=== PATIENT | male | born 1955 | race Caucasian/White ===

== ENCOUNTER → 2016-04-05 | Outpatient (CLI) | payer BC ==
[~2016-04-05] MED LIST: ANORO IH; ARICEPT10 MG PO; ASPIRIN 32325 MG/TAB PO; CELEXA 20MG20 MG/TAB PO; COZAAR 25MG25 MG/TAB PO; ERY-TAB250 MG PO; FLONASE NASAL S16 GM NS; LEVSIN 0.10.125 MG/T PO; MELATONIN5 M1 SL; NAMENDA 10MG TA10 MG PO; NEXIUM 40MG40 MG PO; NIRAVAM1 MG PO; NOVOLIN N100 U/ML SQ; OXY IR5 MG PO; PANCREAZE 437501 ECC PO; RESTORIL 1515 MG/CAP PO; SINGULAIR 110 MG/TAB PO; TOPROL XL 25MG25 MG PO; TOUJEO300 U/ML SQ; VENTOLIN0.09 MG IH; ZOFRAN ODT8 MG PO
== END ==
LOC: COL.LAB 17:03
DX: E11.65 Type 2 diabetes mellitus with hyperglycemia (principal)

== ENCOUNTER 2016-04-25 15:39 | Emergency (ER) | payer BC ==
[~2016-04-25] VITALS: Ht 188 cm; Wt 100.0 kg
[2016-04-25 15:41] VITALS: TEMP 97.6
[2016-04-25 16:16] LABS: BASO # 0.1 (0.0-0.2); BASO % 0.7 % (0.0-2.0); EOS # 0.2 (0.0-0.7); EOS % 2.2 % (0-4.0); GRAN # 5.2 (1.4-6.5); HEMOGLOBIN 15.8 g/dl (13.5-18.0); LYMPH # 1.3 (1.2-3.4); LYMPH % 17.7 % (20.0-51.0); MEAN CELL VOLUME 91 fl (80.0-100.0); MEAN CORPUSCULAR HEMOGLOBIN 30 pg (27.0-31.0); MEAN CORPUSCULAR HGB CONC 33 g/dl (33.0-37.0); MEAN PLATELET VOLUME 11.3 fl (7.4-10.4); MONO # 0.8 (0.1-0.6); MONO % 10.3 % (1.7-9.3); PLATELET COUNT 190 K/mm3 (130-400); RED BLOOD COUNT 5.25 M/mm3 (4.20-5.60); REDCELL DISTRIBUTION WIDTH-CV 13.3 % (11.5-14.5); WHITE BLOOD COUNT 7.6 K/mm3 (4.8-10.8)
[2016-04-25 16:27] LABS: ADJUSTED CALCIUM 9.7 mg/dL (8.4-10.2); ALBUMIN 4.2 gm/dL (3.5-5.0); BILIRUBIN,TOTAL 1.5 mg/dL (0.0-1.0); CALCIUM 9.9 mg/dL (8.4-10.2); CREATININE, serum 0.86 mg/dL (0.66-1.25); POTASSIUM 4.5 mmol/L (3.4-5.0)
[2016-04-25] MEDS ORDERED: TOUJEO300 U/ML SQ ×2 (16:46→17:23)
[2016-04-25] MEDS ORDERED: ASPIRIN 32325 MG/TAB PO (16:46)
[2016-04-25] MEDS ORDERED: NEXIUM 40MG40 MG PO (16:49)
[2016-04-25] MEDS ORDERED: PANCREAZE 437501 ECC PO (16:50)
[2016-04-25] MEDS ORDERED: NIRAVAM1 MG PO (16:50)
[2016-04-25] MEDS ORDERED: RESTORIL 1515 MG/CAP PO (16:51)
[2016-04-25] MEDS ORDERED: CELEXA 20MG20 MG/TAB PO (16:51)
[2016-04-25] MEDS ORDERED: VENTOLIN0.09 MG IH (16:52)
[2016-04-25] MEDS ORDERED: ERY-TAB250 MG PO (16:53)
[2016-04-25] MEDS ORDERED: ZOFRAN ODT8 MG PO (16:54)
[2016-04-25] MEDS ORDERED: ARICEPT10 MG PO (16:56)
[2016-04-25] MEDS ORDERED: LEVSIN 0.10.125 MG/T PO (16:56)
[2016-04-25] MEDS ORDERED: MELATONIN5 M1 SL (16:57)
[2016-04-25] MEDS ORDERED: SINGULAIR 110 MG/TAB PO (16:57)
[2016-04-25] MEDS ORDERED: FLONASE NASAL S16 GM NS (16:59)
[2016-04-25] MEDS ORDERED: ANORO IH (16:59)
[2016-04-25] MEDS ORDERED: NAMENDA 10MG TA10 MG PO (16:59)
[2016-04-25] MEDS ORDERED: COZAAR 25MG25 MG/TAB PO (17:00)
[2016-04-25] MEDS ORDERED: TOPROL XL 25MG25 MG PO (17:00)
[2016-04-25 17:04] LABS: ARTERIAL BLD GAS O2 SATURATION 93.5 % (92-100); ARTERIAL BLOOD GAS BASE EXCESS -1.4 (-2-2); ARTERIAL BLOOD GAS PO2 76.6 mmHg (80-100); ARTERIAL BLOOD GAS pH 7.44 (7.35-7.45); OXYHEMOGLOBIN 92.7 %
[2016-04-25 17:05] LABS: ATS? YES
[2016-04-25] MEDS ORDERED: NOVOLIN N100 U/ML SQ (17:24)
[2016-04-25 18:16] LABS: PH 6 (5-8); SQUAMOUS EPITHELIAL None Seen /hpf; URINE APPEARANCE Clear; URINE BACTERIA Rare /hpf; URINE BILIRUBIN Negative (NEGATIVE); URINE BLOOD Negative (NEGATIVE); URINE COLOR Straw; URINE GLUCOSE 3+ (NEGATIVE); URINE KETONE Negative (NEGATIVE); URINE RBC 0-2 /hpf; URINE UROBILINOGEN Negative (NEGATIVE); URINE WBC None Seen /hpf
[2016-04-25 18:58] VITALS: BP 114/75; PULSE 64
[2016-04-25] MEDS ORDERED: OXY IR5 MG PO (19:10)
== END 2016-04-25 19:30 | disposition home or self-care (01) ==
LOC: COL.ER 15:39
PROVIDERS: Family Medicine
DX: E11.65 Type 2 diabetes mellitus with hyperglycemia (principal); K85.90 Acute pancreatitis without necrosis or infection, unspecified; Z79.4 Long term (current) use of insulin; F03.90 Unspecified dementia, unspecified severity, without behavioral disturbance, psychotic disturbance, mood disturbance, and anxiety; Z85.07 Personal history of malignant neoplasm of pancreas
CPT/HCPCS: J1815; J7030; Q9967

== ENCOUNTER → 2016-06-05 | Outpatient (CLI) | payer BC ==
[2016-06-05 12:48] LABS: ADJUSTED CALCIUM 9.8 mg/dL (8.4-10.2); ALBUMIN 3.7 gm/dL (3.5-5.0); BILIRUBIN,TOTAL 1.1 mg/dL (0.0-1.0); CALCIUM 9.6 mg/dL (8.4-10.2); CREATININE, serum 0.87 mg/dL (0.66-1.25); POTASSIUM 4.5 mmol/L (3.4-5.0)
== END ==
LOC: COL.LAB 11:30
DX: E11.65 Type 2 diabetes mellitus with hyperglycemia (principal)

== ENCOUNTER → 2016-07-17 | Outpatient (CLI) | payer BC ==
[2016-07-17 10:38] LABS: ADJUSTED CALCIUM 9.4 mg/dL (8.4-10.2); BILIRUBIN,TOTAL 1.3 mg/dL (0.0-1.0); CALCIUM 9.4 mg/dL (8.4-10.2); CREATININE, serum 0.84 mg/dL (0.66-1.25); POTASSIUM 4.3 mmol/L (3.4-5.0); TOTAL PROTEIN 7.7 gm/dL (6.4-8.2)
[2016-07-17 11:02] LABS: BASO # 0.1 (0.0-0.2); BASO % 1.5 % (0.0-2.0); EOS # 0.3 (0.0-0.7); EOS % 5.4 % (0-4.0); GRAN # 2.4 (1.4-6.5); GRAN % 48.9 % (42.2-75.2); HEMATOCRIT 42.6 % (42.0-52.0); HEMOGLOBIN 14.5 g/dl (13.5-18.0); LYMPH # 1.5 (1.2-3.4); LYMPH % 30.3 % (20.0-51.0); MEAN CELL VOLUME 87 fl (80.0-100.0); MEAN CORPUSCULAR HEMOGLOBIN 30 pg (27.0-31.0); MEAN CORPUSCULAR HGB CONC 34 g/dl (33.0-37.0); MEAN PLATELET VOLUME 10.8 fl (7.4-10.4); MONO # 0.7 (0.1-0.6); MONO % 13.5 % (1.7-9.3); PLATELET COUNT 178 K/mm3 (130-400); REDCELL DISTRIBUTION WIDTH-CV 14.4 % (11.5-14.5); WHITE BLOOD COUNT 4.8 K/mm3 (4.8-10.8)
[2016-07-17 11:03] LABS: PROTHROMBIN TIME 10.9 SECONDS (9.7-12.8)
== END ==
LOC: COL.LAB 09:51
PROVIDERS: Internal Medicine Gastroenterology
DX: K70.30 Alcoholic cirrhosis of liver without ascites (principal)

== ENCOUNTER → 2016-07-24 | Outpatient (CLI) | payer BC | LOC: COL.RAD 10:39 | DX: K70.30 Alcoholic cirrhosis of liver without ascites (principal) ==

== ENCOUNTER → 2016-08-04 | Outpatient (CLI) | payer BC | LOC: COL.RAD 08-03 10:30 | DX: C25.9 Malignant neoplasm of pancreas, unspecified (principal); Z98.890 Other specified postprocedural states | CPT/HCPCS: Q9967 ==

== ENCOUNTER → 2016-09-01 | Outpatient (CLI) | payer BC ==
[2016-09-01 13:45] LABS: BASO % 0.7 % (0.0-2.0); EOS # 0.2 (0.0-0.7); EOS % 3.4 % (0-4.0); GRAN # 3.5 (1.4-6.5); HEMATOCRIT 47.4 % (42.0-52.0); HEMOGLOBIN 16.1 g/dl (13.5-18.0); LYMPH # 1.3 (1.2-3.4); LYMPH % 23.2 % (20.0-51.0); MEAN CELL VOLUME 86 fl (80.0-100.0); MEAN CORPUSCULAR HEMOGLOBIN 29 pg (27.0-31.0); MEAN CORPUSCULAR HGB CONC 34 g/dl (33.0-37.0); MEAN PLATELET VOLUME 11.1 fl (7.4-10.4); MONO # 0.5 (0.1-0.6); MONO % 8.5 % (1.7-9.3); PLATELET COUNT 185 K/mm3 (130-400); RED BLOOD COUNT 5.51 M/mm3 (4.20-5.60); REDCELL DISTRIBUTION WIDTH-CV 13.8 % (11.5-14.5); WHITE BLOOD COUNT 5.5 K/mm3 (4.8-10.8)
[2016-09-01 14:00] LABS: ADJUSTED CALCIUM 9.9 mg/dL (8.4-10.2); ALBUMIN 4.1 gm/dL (3.5-5.0); BILIRUBIN,TOTAL 1.2 mg/dL (0.0-1.0); CREATININE, serum 0.74 mg/dL (0.66-1.25); POTASSIUM 4.7 mmol/L (3.4-5.0); TOTAL PROTEIN 7.7 gm/dL (6.4-8.2)
== END ==
LOC: COL.LAB 12:37
DX: C25.0 Malignant neoplasm of head of pancreas (principal); D69.6 Thrombocytopenia, unspecified

== ENCOUNTER → 2016-09-18 | Outpatient (CLI) | payer BC ==
[2016-09-18 12:04] LABS: BILIRUBIN,DIRECT 0.5 mg/dL (0.0-0.4); BILIRUBIN,TOTAL 0.9 mg/dL (0.0-1.0); TOTAL PROTEIN 7.6 gm/dL (6.4-8.2)
== END ==
LOC: COL.LAB 11:28
PROVIDERS: Internal Medicine Gastroenterology
DX: K70.30 Alcoholic cirrhosis of liver without ascites (principal)

== ENCOUNTER → 2016-10-02 | Outpatient (CLI) | payer BC ==
[2016-10-02 11:13] LABS: BASO # 0.1 (0.0-0.2); EOS # 0.2 (0.0-0.7); EOS % 2.6 % (0-4.0); GRAN # 3.5 (1.4-6.5); GRAN % 56.4 % (42.2-75.2); HEMATOCRIT 48.9 % (42.0-52.0); HEMOGLOBIN 16.3 g/dl (13.5-18.0); LYMPH # 1.9 (1.2-3.4); LYMPH % 30.4 % (20.0-51.0); MEAN CELL VOLUME 87 fl (80.0-100.0); MEAN CORPUSCULAR HEMOGLOBIN 29 pg (27.0-31.0); MEAN CORPUSCULAR HGB CONC 33 g/dl (33.0-37.0); MEAN PLATELET VOLUME 10.7 fl (7.4-10.4); MONO # 0.6 (0.1-0.6); MONO % 9.4 % (1.7-9.3); PLATELET COUNT 207 K/mm3 (130-400); RED BLOOD COUNT 5.61 M/mm3 (4.20-5.60); REDCELL DISTRIBUTION WIDTH-CV 13.7 % (11.5-14.5); WHITE BLOOD COUNT 6.2 K/mm3 (4.8-10.8)
[2016-10-02 11:18] LABS: PROTHROMBIN TIME 11.2 SECONDS (9.7-12.8)
[2016-10-02 11:24] LABS: ADJUSTED CALCIUM 9.4 mg/dL (8.4-10.2); ALBUMIN 4.3 gm/dL (3.5-5.0); BILIRUBIN,TOTAL 1.3 mg/dL (0.0-1.0); CALCIUM 9.6 mg/dL (8.4-10.2); CREATININE, serum 0.88 mg/dL (0.66-1.25); POTASSIUM 4.4 mmol/L (3.4-5.0)
== END ==
LOC: COL.RAD 08:15
PROVIDERS: Internal Medicine Gastroenterology
DX: Z12.5 Encounter for screening for malignant neoplasm of prostate (principal); C25.9 Malignant neoplasm of pancreas, unspecified; K74.60 Unspecified cirrhosis of liver; I08.2 Rheumatic disorders of both aortic and tricuspid valves; I51.89 Other ill-defined heart diseases; R07.9 Chest pain, unspecified; E11.65 Type 2 diabetes mellitus with hyperglycemia; J98.4 Other disorders of lung

== ENCOUNTER → 2016-10-11 | Outpatient (CLI) | payer BC ==
[2016-10-11 13:33] LABS: PSA-TOTAL 0.68 ng/mL (0-4)
== END ==
LOC: COL.LAB 12:33
PROVIDERS: Family Medicine
DX: Z12.5 Encounter for screening for malignant neoplasm of prostate (principal); E11.65 Type 2 diabetes mellitus with hyperglycemia
CPT/HCPCS: G0103

== ENCOUNTER → 2017-03-08 | Outpatient (CLI) | payer MEDICARE, BC | LOC: COL.RAD 10:30 | DX: K74.69 Other cirrhosis of liver (principal) ==

== ENCOUNTER → 2017-04-16 | Outpatient (CLI) | payer MEDICARE, BC ==
[2017-04-16 11:37] LABS: BASO % 0.8 % (0.0-2.0); EOS # 0.1 (0.0-0.7); EOS % 2.7 % (0-4.0); GRAN # 2.6 (1.4-6.5); GRAN % 53.9 % (42.2-75.2); HEMATOCRIT 45.3 % (42.0-52.0); HEMOGLOBIN 15.4 g/dl (13.5-18.0); LYMPH # 1.5 (1.2-3.4); LYMPH % 30.8 % (20.0-51.0); MEAN CELL VOLUME 91 fl (80.0-100.0); MEAN CORPUSCULAR HEMOGLOBIN 31 pg (27.0-31.0); MEAN CORPUSCULAR HGB CONC 34 g/dl (33.0-37.0); MEAN PLATELET VOLUME 10.9 fl (7.4-10.4); MONO # 0.6 (0.1-0.6); MONO % 11.6 % (1.7-9.3); PLATELET COUNT 154 K/mm3 (130-400); RED BLOOD COUNT 4.98 M/mm3 (4.20-5.60); REDCELL DISTRIBUTION WIDTH-CV 13.9 % (11.5-14.5)
[2017-04-16 11:46] LABS: BILIRUBIN,TOTAL 1.1 mg/dL (0.0-1.0); CALCIUM 9.3 mg/dL (8.4-10.2); CREATININE, serum 0.83 mg/dL (0.66-1.25); POTASSIUM 4.5 mmol/L (3.4-5.0); TOTAL PROTEIN 7.3 gm/dL (6.4-8.2)
== END ==
LOC: COL.LAB 10:08
PROVIDERS: Internal Medicine Gastroenterology
DX: K74.60 Unspecified cirrhosis of liver (principal)

== ENCOUNTER → 2017-04-20 | Outpatient (CLI) | payer MEDICARE, BC ==
[2017-04-20 10:02] LABS: CALCIUM 10.1 mg/dL (8.4-10.2); CHOLESTEROL RISK RATIO 3.5; CREATININE, serum 0.79 mg/dL (0.66-1.25); POTASSIUM 4.5 mmol/L (3.4-5.0)
[2017-04-20 23:26] LABS: CREATININE OTHER SOURCE 85 mg/dL (()); URINE MICROALBUMIN <0.5 mg/dL (0.0-1.7)
== END ==
LOC: COL.LAB 09:13
PROVIDERS: Internal Medicine Endocrinology, Diabetes & Metabolism
DX: E08.9 Diabetes mellitus due to underlying condition without complications (principal); E89.1 Postprocedural hypoinsulinemia; Z90.410 Acquired total absence of pancreas

== ENCOUNTER → 2017-07-16 | Outpatient (CLI) | payer MEDICARE, BC ==
[2017-07-16 09:23] LABS: ALBUMIN 3.8 gm/dL (3.5-5.0); BILIRUBIN,TOTAL 0.8 mg/dL (0.0-1.0); CALCIUM 9.2 mg/dL (8.4-10.2); CREATININE, serum 0.8 mg/dL (0.66-1.25); TOTAL PROTEIN 7.7 gm/dL (6.4-8.2)
[2017-07-16 22:58] LABS: CREATININE OTHER SOURCE 94 mg/dL (()); URINE MICROALBUMIN <0.5 mg/dL (0.0-1.7)
== END ==
LOC: COL.LAB 08:28
DX: E89.1 Postprocedural hypoinsulinemia (principal); E11.65 Type 2 diabetes mellitus with hyperglycemia; Z90.410 Acquired total absence of pancreas

== ENCOUNTER → 2017-08-24 | Outpatient (CLI) | payer MEDICARE, BC ==
[2017-08-24 10:35] LABS: BASO % 0.7 % (0.0-2.0); EOS # 0.2 (0.0-0.7); EOS % 3.1 % (0-4.0); GRAN # 3.1 (1.4-6.5); GRAN % 56.1 % (42.2-75.2); HEMATOCRIT 44.2 % (42.0-52.0); HEMOGLOBIN 15.4 g/dl (13.5-18.0); LYMPH # 1.6 (1.2-3.4); LYMPH % 29.3 % (20.0-51.0); MEAN CELL VOLUME 92 fl (80.0-100.0); MEAN CORPUSCULAR HEMOGLOBIN 32 pg (27.0-31.0); MEAN CORPUSCULAR HGB CONC 35 g/dl (33.0-37.0); MEAN PLATELET VOLUME 10.6 fl (7.4-10.4); MONO # 0.6 (0.1-0.6); MONO % 10.4 % (1.7-9.3); PLATELET COUNT 148 K/mm3 (130-400); RED BLOOD COUNT 4.81 M/mm3 (4.20-5.60); REDCELL DISTRIBUTION WIDTH-CV 12.9 % (11.5-14.5)
[2017-08-24 10:41] LABS: PROTHROMBIN TIME 11.2 SECONDS (9.7-12.8)
[2017-08-24 10:54] LABS: ALBUMIN 3.6 gm/dL (3.5-5.0); BILIRUBIN,TOTAL 0.7 mg/dL (0.0-1.0); CALCIUM 9.5 mg/dL (8.4-10.2); CREATININE, serum 0.78 mg/dL (0.66-1.25); TOTAL PROTEIN 7.1 gm/dL (6.4-8.2)
== END ==
LOC: COL.LAB 09:31 → COL.RAD 10:30
PROVIDERS: Internal Medicine Gastroenterology
DX: K74.60 Unspecified cirrhosis of liver (principal); K75.81 Nonalcoholic steatohepatitis (NASH); Z90.49 Acquired absence of other specified parts of digestive tract

== ENCOUNTER → 2017-11-05 | Outpatient (CLI) | payer MEDICARE, BC ==
[2017-11-05 10:08] LABS: ALBUMIN 3.7 gm/dL (3.5-5.0); BILIRUBIN,TOTAL 0.7 mg/dL (0.0-1.0); CALCIUM 8.9 mg/dL (8.4-10.2); CHOLESTEROL RISK RATIO 3.5; CREATININE, serum 0.77 mg/dL (0.66-1.25); POTASSIUM 4.3 mmol/L (3.4-5.0)
== END ==
LOC: COL.LAB 09:23
PROVIDERS: Internal Medicine Endocrinology, Diabetes & Metabolism
DX: E13.9 Other specified diabetes mellitus without complications (principal); E89.1 Postprocedural hypoinsulinemia; Z90.410 Acquired total absence of pancreas; G63 Polyneuropathy in diseases classified elsewhere

== ENCOUNTER → 2017-11-22 | Outpatient (CLI) | payer MEDICARE, BC | LOC: COL.LAB 07:38 | DX: R53.82 Chronic fatigue, unspecified (principal) | CPT/HCPCS: G0103 ==

== ENCOUNTER → 2017-12-24 | Outpatient (CLI) | payer MEDICARE, BC ==
[2017-12-26 14:21] LABS: SEX HORMONE BINDING GLOBULIN 38 nmol/L (10-57)
== END ==
LOC: COL.LAB 07:38
PROVIDERS: Physician Assistant
DX: R53.82 Chronic fatigue, unspecified (principal)

== ENCOUNTER 2018-01-28 20:30 | Observation (INO) | payer MEDICARE, BC ==
[~2018-01-28] VITALS: Ht 188 cm; Wt 107.9 kg
[2018-01-28 20:53] LABS: BASO % 0.6 % (0.0-2.0); EOS # 0.1 (0.0-0.7); EOS % 2.3 % (0-4.0); GRAN # 3.6 (1.4-6.5); GRAN % 58.4 % (42.2-75.2); HEMATOCRIT 47.2 % (42.0-52.0); HEMOGLOBIN 16.3 g/dl (13.5-18.0); LYMPH # 1.7 (1.2-3.4); LYMPH % 27.6 % (20.0-51.0); MEAN CELL VOLUME 91 fl (80.0-100.0); MEAN CORPUSCULAR HEMOGLOBIN 31 pg (27.0-31.0); MEAN CORPUSCULAR HGB CONC 35 g/dl (33.0-37.0); MEAN PLATELET VOLUME 10.6 fl (7.4-10.4); MONO # 0.7 (0.1-0.6); MONO % 10.8 % (1.7-9.3); PLATELET COUNT 171 K/mm3 (130-400); REDCELL DISTRIBUTION WIDTH-CV 13.1 % (11.5-14.5)
[2018-01-28 21:02] LABS: ALANINE AMINOTRANSFERASE 56 U/L (21-72); ALBUMIN 4.3 gm/dL (3.5-5.0); ALKALINE PHOSPHATASE 166 U/L (50-136); ANION GAP 6 mmol/L (7-16); AST,SGOT 37 U/L (15-37); BILIRUBIN,TOTAL 0.9 mg/dL (0.0-1.0); BLOOD UREA NITROGEN 16 mg/dL (9-20); CALCIUM 9.4 mg/dL (8.4-10.2); CARBON DIOXIDE 27 mmol/L (22-30); CHLORIDE 105 mmol/L (98-107); CREATININE, serum 0.89 mg/dL (0.66-1.25); GLUCOSE 195 mg/dL (74-106); POTASSIUM 4.4 mmol/L (3.4-5.0); PROTHROMBIN TIME 11.2 SECONDS (9.7-12.8); SODIUM 139 mmol/L (137-145); TOTAL PROTEIN 7.9 gm/dL (6.4-8.2)
[2018-01-28 21:13] LABS: TROPONIN-I < 0.012 ng/mL (0.000-0.034)
[2018-01-28 21:28] LABS: D-DIMER < 200.00 ng/mLDDu (200-230)
[2018-01-28] MEDS ORDERED: EXELON13.3TDM (23:26)
[2018-01-28] MEDS ORDERED: CIALIS5 MG PO (23:30)
[2018-01-29] VITALS (7 sets, daily range): BP systolic 120–154; BP diastolic 66–82; PULSE 64–87; TEMP 97.4–98.3
[2018-01-29] MEDS ORDERED: NOVOLOG 100U100 U/M1 SQ (02:09)
[2018-01-29 07:53] LABS: BASO % 0.7 % (0.0-2.0); EOS # 0.1 (0.0-0.7); EOS % 2.1 % (0-4.0); GRAN # 3.6 (1.4-6.5); GRAN % 59.6 % (42.2-75.2); HEMATOCRIT 45.2 % (42.0-52.0); HEMOGLOBIN 15.7 g/dl (13.5-18.0); LYMPH # 1.5 (1.2-3.4); LYMPH % 25.1 % (20.0-51.0); MEAN CELL VOLUME 90 fl (80.0-100.0); MEAN CORPUSCULAR HEMOGLOBIN 31 pg (27.0-31.0); MEAN CORPUSCULAR HGB CONC 35 g/dl (33.0-37.0); MEAN PLATELET VOLUME 10.5 fl (7.4-10.4); MONO # 0.7 (0.1-0.6); MONO % 12.2 % (1.7-9.3); PLATELET COUNT 153 K/mm3 (130-400); RED BLOOD COUNT 5.02 M/mm3 (4.20-5.60); REDCELL DISTRIBUTION WIDTH-CV 13.3 % (11.5-14.5)
[2018-01-29 08:06] LABS: CALCIUM 9.2 mg/dL (8.4-10.2); CHOLESTEROL RISK RATIO 4.4; CREATININE, serum 0.71 mg/dL (0.66-1.25)
[2018-01-29 23:11] LABS: FOLATE (FOLIC ACID) 14.7 ng/mL (7.0-31.4)
[2018-01-30 00:29] LABS: RPR (VDRL) Negative (Negative)
[2018-01-30 04:03] VITALS: BP 123/67; PULSE 74; TEMP 98.4
[2018-01-30 07:41] VITALS: BP 119/74; PULSE 73; TEMP 98
[2018-01-30 12:06] VITALS: BP 125/61; PULSE 80; TEMP 98.2
[2018-01-30] MEDS ORDERED: PLAVIX 75MG TAB75 MG PO (13:46)
[2018-01-30] MEDS ORDERED: ASPIRIN E.C. 8181 MG PO (13:47)
== END 2018-01-30 15:20 | disposition home or self-care (01) ==
LOC: COL.ER 20:30 → MEDICAL 23:09
PROVIDERS: Emergency Medicine; Nurse Practitioner; Psychiatry & Neurology Neurology
DX: I48.91 Unspecified atrial fibrillation (principal); I10 Essential (primary) hypertension; E11.9 Type 2 diabetes mellitus without complications; K21.9 Gastro-esophageal reflux disease without esophagitis; J44.9 Chronic obstructive pulmonary disease, unspecified; F03.90 Unspecified dementia, unspecified severity, without behavioral disturbance, psychotic disturbance, mood disturbance, and anxiety; I71.4 Abdominal aortic aneurysm, without rupture; K74.60 Unspecified cirrhosis of liver; F01.50 Vascular dementia, unspecified severity, without behavioral disturbance, psychotic disturbance, mood disturbance, and anxiety; E03.9 Hypothyroidism, unspecified; Z90.49 Acquired absence of other specified parts of digestive tract; Z79.82 Long term (current) use of aspirin; Z79.4 Long term (current) use of insulin; Z85.07 Personal history of malignant neoplasm of pancreas; Z86.73 Personal history of transient ischemic attack (TIA), and cerebral infarction without residual deficits; Z85.51 Personal history of malignant neoplasm of bladder; Z82.3 Family history of stroke; Z83.3 Family history of diabetes mellitus
CPT/HCPCS: 99239; G0378; G8978-GP; G8979-GP; G8987-GO; G8988-GO; G9168-GN; G9169-GN; G9170-GN; J1650; J1815

== ENCOUNTER → 2018-02-15 | Outpatient (CLI) | payer MEDICARE, BC ==
[~2018-02-15] MED LIST changes: +ASPIRIN E.C. 8181 MG PO; +CIALIS5 MG PO; +EXELON13.3TDM; +NOVOLOG 100U100 U/M1 SQ; +PLAVIX 75MG TAB75 MG PO
[2018-02-15 10:35] LABS: ALBUMIN 3.8 gm/dL (3.5-5.0); BILIRUBIN,TOTAL 0.7 mg/dL (0.0-1.0); CALCIUM 9.4 mg/dL (8.4-10.2); CREATININE, serum 0.72 mg/dL (0.66-1.25); POTASSIUM 4.4 mmol/L (3.4-5.0); TOTAL PROTEIN 7.2 gm/dL (6.4-8.2)
== END ==
LOC: COL.LAB 09:23
PROVIDERS: Physician Assistant
DX: E13.9 Other specified diabetes mellitus without complications (principal); E89.1 Postprocedural hypoinsulinemia; Z90.410 Acquired total absence of pancreas

== ENCOUNTER 2018-03-06 14:00 | Outpatient (RCR) | payer MEDICARE, BC | END 2018-05-13 | disposition still patient (30) | LOC: WSST | DX: R48.9 Unspecified symbolic dysfunctions (principal); R41.3 Other amnesia; F01.50 Vascular dementia, unspecified severity, without behavioral disturbance, psychotic disturbance, mood disturbance, and anxiety; E03.9 Hypothyroidism, unspecified; I71.2 Thoracic aortic aneurysm, without rupture | CPT/HCPCS: G9168-GN; G9169-GN ==

== ENCOUNTER → 2018-03-15 | Outpatient (CLI) | payer MEDICARE, OTHER | LOC: COL.RAD 03-08 09:45 | DX: K75.81 Nonalcoholic steatohepatitis (NASH) (principal); K74.60 Unspecified cirrhosis of liver; Z98.890 Other specified postprocedural states ==

== ENCOUNTER 2018-07-13 19:32 | Emergency (ER) | payer MEDICARE, OTHER ==
[~2018-07-13] VITALS: Ht 188 cm; Wt 113.6 kg
[2018-07-13 19:38] VITALS: TEMP 98.9
[2018-07-13] MEDS ORDERED: MIRALAX PA17 GM/Dose PO (19:57)
[2018-07-13] MEDS ORDERED: PLAVIX 75MG TAB75 MG PO (20:02)
[2018-07-13 20:51] LABS: BASO % 0.3 % (0.0-2.0); EOS % 0.2 % (0-4.0); GRAN # 7.3 (1.4-6.5); GRAN % 84.9 % (42.2-75.2); HEMOGLOBIN 14.5 g/dl (13.5-18.0); LYMPH # 0.4 (1.2-3.4); LYMPH % 4.4 % (20.0-51.0); MEAN CELL VOLUME 91 fl (80.0-100.0); MEAN CORPUSCULAR HEMOGLOBIN 31 pg (27.0-31.0); MEAN CORPUSCULAR HGB CONC 35 g/dl (33.0-37.0); MEAN PLATELET VOLUME 10.4 fl (7.4-10.4); MONO # 0.9 (0.1-0.6); MONO % 9.9 % (1.7-9.3); PLATELET COUNT 121 K/mm3 (130-400); RED BLOOD COUNT 4.62 M/mm3 (4.20-5.60); REDCELL DISTRIBUTION WIDTH-CV 13.2 % (11.5-14.5)
[2018-07-13 21:04] LABS: ALANINE AMINOTRANSFERASE 53 U/L (21-72); ALBUMIN 3.7 gm/dL (3.5-5.0); ALKALINE PHOSPHATASE 141 U/L (50-136); ANION GAP 9 mmol/L (7-16); AST,SGOT 53 U/L (15-37); BLOOD UREA NITROGEN 18 mg/dL (9-20); C-REACTIVE PROTEIN 1.5 mg/dL (0.0-0.9); CARBON DIOXIDE 24 mmol/L (22-30); CHLORIDE 107 mmol/L (98-107); CREATININE, serum 0.88 (0.66-1.25); GLUCOSE 103 mg/dL (74-106); LIPASE 74 U/L (23-300); SODIUM 140 mmol/L (137-145)
[2018-07-13 21:13] LABS: TROPONIN-I < 0.012 ng/mL (0.000-0.035)
[2018-07-13 21:53] LABS: COLLECTION METHOD CLEAN CATCH
[2018-07-13 22:03] LABS: PH 5 (5-8); SQUAMOUS EPITHELIAL None Seen /hpf; URINE APPEARANCE Clear; URINE BACTERIA None Seen /hpf; URINE BILIRUBIN Negative (NEGATIVE); URINE BLOOD Negative (NEGATIVE); URINE COLOR Yellow; URINE GLUCOSE Negative (NEGATIVE); URINE KETONE Negative (NEGATIVE); URINE LEUKOCYTE ESTERASE Negative (NEGATIVE); URINE NITRATE Negative (NEGATIVE); URINE PROTEIN(semi-quant) Negative (NEGATIVE); URINE RBC 0-2 /hpf; URINE UROBILINOGEN Negative (NEGATIVE)
[2018-07-13 23:21] VITALS: BP 137/79; PULSE 89
== END 2018-07-13 23:21 | disposition home or self-care (01) ==
LOC: COL.ER 19:32
PROVIDERS: Emergency Medicine
DX: R55 Syncope and collapse (principal); G89.29 Other chronic pain; R10.30 Lower abdominal pain, unspecified; E11.9 Type 2 diabetes mellitus without complications; I48.91 Unspecified atrial fibrillation; K21.9 Gastro-esophageal reflux disease without esophagitis; F03.90 Unspecified dementia, unspecified severity, without behavioral disturbance, psychotic disturbance, mood disturbance, and anxiety; Z86.73 Personal history of transient ischemic attack (TIA), and cerebral infarction without residual deficits; Z79.51 Long term (current) use of inhaled steroids; Z79.4 Long term (current) use of insulin
CPT/HCPCS: J3010; J7030

== ENCOUNTER → 2018-08-22 | Outpatient (CLI) | payer MEDICARE, OTHER ==
[~2018-08-22] MED LIST changes: +MIRALAX PA17 GM/Dose PO
[2018-08-22 09:03] LABS: CALCIUM 9.4 mg/dL (8.4-10.2); CREATININE, serum 0.89 (0.66-1.25); POTASSIUM 4.1 mmol/L (3.4-5.0); TOTAL PROTEIN 7.8 gm/dL (6.4-8.2)
[2018-08-22 16:08] LABS: CREATININE OTHER SOURCE 83 mg/dL (()); URINE MICROALBUMIN <0.5 mg/dL (0.0-1.7)
== END ==
LOC: COL.LAB 07:54
PROVIDERS: Physician Assistant
DX: E89.1 Postprocedural hypoinsulinemia (principal)

== ENCOUNTER → 2019-02-18 | Outpatient (CLI) | payer MEDICARE, OTHER | LOC: COL.RAD 08:47 | DX: K75.81 Nonalcoholic steatohepatitis (NASH) (principal); K74.60 Unspecified cirrhosis of liver ==

== ENCOUNTER → 2019-03-17 | Outpatient (CLI) | payer MEDICARE, OTHER ==
[2019-03-17 12:10] LABS: CHOLESTEROL RISK RATIO 3.3
== END ==
LOC: COL.LAB 10:43
PROVIDERS: Physician Assistant
DX: I10 Essential (primary) hypertension (principal); E89.1 Postprocedural hypoinsulinemia

== ENCOUNTER → 2019-09-29 | Outpatient (CLI) | payer MEDICARE, OTHER ==
[2019-09-29 09:13] LABS: URINE PROTEIN:CREAT RATIO 0.13 (0.00-0.14)
== END ==
LOC: COL.LAB 08:11
DX: E89.1 Postprocedural hypoinsulinemia (principal)

== ENCOUNTER → 2019-12-17 | Outpatient (CLI) | payer MEDICARE, OTHER ==
[~2019-12-17] MED LIST changes: +AMOXICILLIN 8751 TAB PO; +KLONOPIN 1MG1 MG PO; +LYRICA 25MG CAP25 MG PO; +MELATONIN5 M1 PO; -MELATONIN5 M1 SL; +TAMBOCOR50 MG PO
[2019-12-17 10:44] LABS: ALBUMIN 4.3 gm/dL (3.5-5.0); CALCIUM 9.5 mg/dL (8.4-10.2); CREATININE, serum 0.8 (0.66-1.25); POTASSIUM 4.4 mmol/L (3.4-5.0); TOTAL PROTEIN 8.1 gm/dL (6.4-8.2)
== END ==
LOC: COL.LAB 09:29
PROVIDERS: Nurse Practitioner Family
DX: E89.1 Postprocedural hypoinsulinemia (principal); I10 Essential (primary) hypertension

== ENCOUNTER → 2020-01-12 | Outpatient (CLI) | payer MEDICARE, OTHER ==
[2020-01-12 09:01] LABS: BASO % 0.6 % (0.0-2.0); EOS # 0.1 (0.0-0.7); EOS % 2.3 % (0-4.0); GRAN # 2.9 (1.4-6.5); GRAN % 60.4 % (42.2-75.2); HEMATOCRIT 46.3 % (42.0-52.0); LYMPH # 1.1 (1.2-3.4); LYMPH % 23.4 % (20.0-51.0); MEAN CELL VOLUME 91 fl (80.0-100.0); MEAN CORPUSCULAR HEMOGLOBIN 32 pg (27.0-31.0); MEAN CORPUSCULAR HGB CONC 35 g/dl (33.0-37.0); MEAN PLATELET VOLUME 10.6 fl (7.4-10.4); MONO # 0.6 (0.1-0.6); MONO % 13.1 % (1.7-9.3); PLATELET COUNT 139 K/mm3 (130-400); RED BLOOD COUNT 5.07 M/mm3 (4.20-5.60); REDCELL DISTRIBUTION WIDTH-CV 12.5 % (11.5-14.5)
[2020-01-12 09:11] LABS: PROTHROMBIN TIME 11.4 SECONDS (9.7-12.8)
[2020-01-12 09:14] LABS: ALBUMIN 4.1 gm/dL (3.5-5.0); CALCIUM 9.2 mg/dL (8.4-10.2); CREATININE, serum 0.96 (0.66-1.25); POTASSIUM 4.7 mmol/L (3.4-5.0); TOTAL PROTEIN 7.6 gm/dL (6.4-8.2)
== END ==
LOC: COL.LAB 07:37 → COL.RAD 07:37
PROVIDERS: Internal Medicine Gastroenterology
DX: K74.60 Unspecified cirrhosis of liver (principal); K75.81 Nonalcoholic steatohepatitis (NASH); Z90.49 Acquired absence of other specified parts of digestive tract

== ENCOUNTER → 2020-04-23 | Outpatient (CLI) | payer MEDICARE | LOC: COL.CARD 08:21 | DX: Z01.818 Encounter for other preprocedural examination (principal); K31.84 Gastroparesis ==

== ENCOUNTER → 2020-06-29 | Outpatient (CLI) | payer MEDICARE ==
[~2020-06-29] MED LIST changes: +BACTRIM DS 8001 TAB PO; +FLOMAX 0.40.4 MG/CAP PO; +ROXICODONE 55 MG/TAB PO; +T SLIM X MC
[2020-06-29 11:37] LABS: BASO % 0.6 % (0.0-2.0); EOS # 0.1 (0.0-0.7); EOS % 1.7 % (0-4.0); GRAN # 4.2 (1.4-6.5); GRAN % 65.6 % (42.2-75.2); HEMATOCRIT 47.4 % (42.0-52.0); HEMOGLOBIN 16.2 g/dl (13.5-18.0); LYMPH # 1.4 (1.2-3.4); LYMPH % 21.4 % (20.0-51.0); MEAN CELL VOLUME 96 fl (80.0-100.0); MEAN CORPUSCULAR HEMOGLOBIN 33 pg (27.0-31.0); MEAN CORPUSCULAR HGB CONC 34 g/dl (33.0-37.0); MEAN PLATELET VOLUME 9.9 fl (7.4-10.4); MONO # 0.7 (0.1-0.6); MONO % 10.4 % (1.7-9.3); PLATELET COUNT 163 K/mm3 (130-400); RED BLOOD COUNT 4.96 M/mm3 (4.20-5.60); REDCELL DISTRIBUTION WIDTH-CV 12.8 % (11.5-14.5)
[2020-06-29 11:56] LABS: PROTHROMBIN TIME 11.2 SECONDS (9.7-12.8)
[2020-06-29 12:01] LABS: ALBUMIN 4.1 gm/dL (3.5-5.0); BILIRUBIN,TOTAL 0.7 mg/dL (0.0-1.0); CALCIUM 9.5 mg/dL (8.4-10.2); CREATININE, serum 0.91 (0.66-1.25); POTASSIUM 4.3 mmol/L (3.4-5.0); TOTAL PROTEIN 7.8 gm/dL (6.4-8.2)
== END ==
LOC: COL.LAB 10:26
PROVIDERS: Family Medicine
DX: Z13.89 Encounter for screening for other disorder (principal)

== ENCOUNTER → 2020-06-29 | Outpatient (CLI) | payer MEDICARE | LOC: COL.RAD 08:15 | DX: K74.60 Unspecified cirrhosis of liver (principal); K75.81 Nonalcoholic steatohepatitis (NASH); Z90.49 Acquired absence of other specified parts of digestive tract ==

== ENCOUNTER → 2020-07-30 | Outpatient (CLI) | payer MEDICARE | LOC: COL.CARD 10:57 | DX: Q25.44 Congenital dilation of aorta (principal); Z95.818 Presence of other cardiac implants and grafts; Z79.899 Other long term (current) drug therapy ==

== ENCOUNTER → 2020-08-30 | Outpatient (CLI) | payer MEDICARE ==
[2020-08-30 11:22] LABS: ALBUMIN 4.1 gm/dL (3.5-5.0); BILIRUBIN,TOTAL 0.7 mg/dL (0.0-1.0); CALCIUM 9.3 mg/dL (8.4-10.2); CREATININE, serum 0.91 (0.66-1.25); POTASSIUM 4.5 mmol/L (3.4-5.0); TOTAL PROTEIN 7.7 gm/dL (6.4-8.2)
[2020-08-30 23:58] LABS: CREATININE OTHER SOURCE 56 mg/dL (()); URINE MICROALBUMIN <0.5 mg/dL (0.0-1.7)
== END ==
LOC: COL.LAB 10:36
PROVIDERS: Nurse Practitioner Gerontology
DX: E89.1 Postprocedural hypoinsulinemia (principal)

== ENCOUNTER 2020-11-23 17:48 | Inpatient (IN) | payer MEDICARE ==
[~2020-11-23] VITALS: Ht 188 cm; Wt 111.4 kg
--- NOTE | 2020-11-23 11:45 | NUR ---
PATIENT UP TO ROOM 322 FROM ER. PATIENT ALERT AND ORIENTED X4. PATIENT RATING PAIN 7/10. PAIN MEDS GIVEN PER ORDERS. PATIENT STATES HE SAW HIS GRANDDAUGHTER ON SUNDAY WHO TESTED POSITIVE FOR COVID. HE HAS A NEGATIVE TEST RESULT ON SUNDAY. HOSPITALIST AND CELLARS SUPERVISOR NOTIFIED. COVID TEST ORDERED. PATIENT HAS 20G LEFT AC IV INT. PATIENT SET TO HAVE MRCP IN THE MORNING. NPO AT MIDNIGHT. PATIENT HAS INSULIN PUMP IN ABDOMEN. NO FURTHER NEEDS AT THIS TIME. CALL LIGHT WITHIN REACH. ADMISSIONS ASSESSMENTS COMPLETE.
[~2020-11-23 17:48] MED LIST changes: -BACTRIM DS 8001 TAB PO; -FLOMAX 0.40.4 MG/CAP PO; -ROXICODONE 55 MG/TAB PO; -T SLIM X MC
[2020-11-23 19:42] LABS: BASO % 0.5 % (0.0-2.0); EOS # 0.1 (0.0-0.7); EOS % 1.9 % (0-4.0); GRAN # 4.1 (1.4-6.5); GRAN % 70.2 % (42.2-75.2); HEMATOCRIT 47.8 % (42.0-52.0); HEMOGLOBIN 16.4 g/dl (13.5-18.0); LYMPH # 0.8 (1.2-3.4); LYMPH % 14.5 % (20.0-51.0); MEAN CELL VOLUME 93 fl (80.0-100.0); MEAN CORPUSCULAR HEMOGLOBIN 32 pg (27.0-31.0); MEAN CORPUSCULAR HGB CONC 34 g/dl (33.0-37.0); MEAN PLATELET VOLUME 10.1 fl (7.4-10.4); MONO # 0.7 (0.1-0.6); MONO % 12.6 % (1.7-9.3); PLATELET COUNT 131 K/mm3 (130-400); RED BLOOD COUNT 5.15 M/mm3 (4.20-5.60); REDCELL DISTRIBUTION WIDTH-CV 13.2 % (11.5-14.5)
[2020-11-23 19:52] LABS: ALBUMIN 4.2 gm/dL (3.5-5.0); BILIRUBIN,TOTAL 2.2 mg/dL (0.0-1.0); C-REACTIVE PROTEIN 5.8 mg/dL (0.0-0.9); CALCIUM 8.9 mg/dL (8.4-10.2); CREATININE, serum 0.97 (0.66-1.25); POTASSIUM 4.2 mmol/L (3.4-5.0); TOTAL PROTEIN 7.9 gm/dL (6.4-8.2)
[2020-11-23] MEDS ORDERED: MIRALAX PA17 GM/Dose PO (21:22)
[2020-11-24] VITALS (7 sets, daily range): BP systolic 100–130; BP diastolic 54–77; PULSE 61–68; TEMP 97.7–98.3
--- NOTE | 2020-11-24 06:20 | NUR ---
PATIENT DID WELL THROUGHOUT NIGHT. SLEPT THROUGH MOST OF NIGHT. TURNED OFF OWN INSULIN PUMP BECAUSE HE IS NPO. PATIENT NPO SINCE MIDNIGHT FOR MRCP TODAY. NO FURTHER NEEDS AT THIS TIME. WILL REPORT TO DAYSHIFT.
[2020-11-24 07:23] LABS: CALCIUM 8.2 mg/dL (8.4-10.2); CREATININE, serum 0.97 (0.66-1.25)
[2020-11-24 07:25] LABS: BASO % 0.5 % (0.0-2.0); EOS # 0.1 (0.0-0.7); EOS % 2.6 % (0-4.0); GRAN # 2.6 (1.4-6.5); GRAN % 63.1 % (42.2-75.2); HEMATOCRIT 44.1 % (42.0-52.0); HEMOGLOBIN 14.7 g/dl (13.5-18.0); LYMPH # 0.8 (1.2-3.4); LYMPH % 19.7 % (20.0-51.0); MEAN CELL VOLUME 96 fl (80.0-100.0); MEAN CORPUSCULAR HEMOGLOBIN 32 pg (27.0-31.0); MEAN CORPUSCULAR HGB CONC 33 g/dl (33.0-37.0); MEAN PLATELET VOLUME 10.5 fl (7.4-10.4); MONO # 0.6 (0.1-0.6); MONO % 13.9 % (1.7-9.3); PLATELET COUNT 116 K/mm3 (130-400); RED BLOOD COUNT 4.62 M/mm3 (4.20-5.60); REDCELL DISTRIBUTION WIDTH-CV 13.3 % (11.5-14.5)
--- NOTE | 2020-11-24 09:30 | NUR ---
Patient alert and oriented, answers questions appropriately. See assessment. Abdomen soft, non tender, non distended. Bowel sounds active x4 quads. +Flatus. NPO for ERCP. No c/o at this time.
--- NOTE | 2020-11-24 10:45 | NUR ---
Attempting to obtain information on patients Watchman prior to MRI.
--- NOTE | 2020-11-24 12:33 | NUR ---
First visit from the buffer automatic. No needs right now.
[2020-11-24] MEDS ORDERED: T SLIM X MC (13:19)
[2020-11-24] MEDS ORDERED: NEXIUM 40MG40 MG PO (13:22)
[2020-11-24] MEDS ORDERED: FLOMAX 0.40.4 MG/CAP PO (13:32)
[2020-11-24] MEDS ORDERED: ROXICODONE 55 MG/TAB PO (13:33)
--- NOTE | 2020-11-24 13:49 | NUR ---
Local Sales Manager met with patient to discuss discharge planning. Patient lives in [place] with his , Amarjit (ph#[phone]) and sees Dr. Shelton for primary care. Patient obtains medications from [facility] with no difficulties. Patient states he normally does not use any DME but has a cane that he reports he may start using because he has had a couple falls at home. Patient reports independence with ADLS and plans to return home upon discharge. Patient states his and two daughters are his DPOA-HC, but SW did not locate copy in EMR. EBER contacted ABRIL Hernandez and requested PT/OT orders. Discharge Plan: Home (pending PT/OT evaluation for recommendations).
--- NOTE | 2020-11-24 16:00 | NUR ---
To MRI at this time.
--- NOTE | 2020-11-24 17:36 | NUR ---
Attempted x4 to contact Dr Jack for diet order, unanswered. Order received per Dr Sandoval for low fat/carb control diet.
--- NOTE | 2020-11-24 20:20 | NUR ---
Pt. sitting up in bed at this time. Pt. is A&OX3, assessment complete. INT to lt. ac patent. Pt. denies pain or other needs, call light within reach.
[2020-11-25 03:06] VITALS: BP 125/77; PULSE 55; TEMP 97.9
[2020-11-25 07:26] VITALS: BP 137/70; PULSE 54; TEMP 98
[2020-11-25 08:00] LABS: BASO % 0.7 % (0.0-2.0); EOS # 0.1 (0.0-0.7); EOS % 2.9 % (0-4.0); GRAN # 2.4 (1.4-6.5); GRAN % 59.2 % (42.2-75.2); HEMATOCRIT 45.1 % (42.0-52.0); HEMOGLOBIN 15.6 g/dl (13.5-18.0); LYMPH # 0.9 (1.2-3.4); LYMPH % 21.7 % (20.0-51.0); MEAN CELL VOLUME 93 fl (80.0-100.0); MEAN CORPUSCULAR HEMOGLOBIN 32 pg (27.0-31.0); MEAN CORPUSCULAR HGB CONC 35 g/dl (33.0-37.0); MONO # 0.6 (0.1-0.6); MONO % 15.3 % (1.7-9.3); PLATELET COUNT 128 K/mm3 (130-400); RED BLOOD COUNT 4.85 M/mm3 (4.20-5.60); REDCELL DISTRIBUTION WIDTH-CV 12.8 % (11.5-14.5)
[2020-11-25 08:09] LABS: ALBUMIN 3.8 gm/dL (3.5-5.0); BILIRUBIN,TOTAL 1.9 mg/dL (0.0-1.0); CALCIUM 8.9 mg/dL (8.4-10.2); CREATININE, serum 0.88 (0.66-1.25); POTASSIUM 4.2 mmol/L (3.4-5.0); TOTAL PROTEIN 7.3 gm/dL (6.4-8.2)
--- NOTE | 2020-11-25 09:45 | NUR ---
Patient alert and oriented, answers questions appropriately. See assessment. Abdomen soft, non tender, non distended. Bowel sounds active x4 quads. +Flatus. +Bowel movement. No c/o pain or discomfort.
[2020-11-25] MEDS ORDERED: BACTRIM DS 8001 TAB PO (10:56)
[2020-11-25 11:21] VITALS: BP 140/63; PULSE 59; TEMP 97.7
--- NOTE | 2020-11-25 13:00 | NUR ---
Discharge instructions reviewed with patient and spouse, verbalized understanding. Discharged via wheelchair to auto/home with spouse at 1255.
== END 2020-11-25 12:55 | disposition home or self-care (01) | DRG 445 ==
LOC: COL.ER 17:48 → SURG 21:09
PROVIDERS: Nurse Practitioner; Physician Assistant; Student in an Organized Health Care Education/Training Program; ADMIT Student in an Organized Health Care Education/Training Program
DX: K83.09 Other cholangitis (principal); C25.9 Malignant neoplasm of pancreas, unspecified; I48.91 Unspecified atrial fibrillation; N40.0 Benign prostatic hyperplasia without lower urinary tract symptoms; K21.9 Gastro-esophageal reflux disease without esophagitis; G47.00 Insomnia, unspecified; E11.40 Type 2 diabetes mellitus with diabetic neuropathy, unspecified; J44.9 Chronic obstructive pulmonary disease, unspecified; I10 Essential (primary) hypertension; F01.50 Vascular dementia, unspecified severity, without behavioral disturbance, psychotic disturbance, mood disturbance, and anxiety; Z20.822 Contact with and (suspected) exposure to COVID-19; F41.9 Anxiety disorder, unspecified; K74.60 Unspecified cirrhosis of liver; F32.9 Major depressive disorder, single episode, unspecified; Z86.73 Personal history of transient ischemic attack (TIA), and cerebral infarction without residual deficits; Z87.01 Personal history of pneumonia (recurrent); Z87.891 Personal history of nicotine dependence; Z79.82 Long term (current) use of aspirin
CPT/HCPCS: 99223-AI; 99233-AI; 99239; J1170; J1200; J1815; J2543; J2765; J7030

== ENCOUNTER → 2021-01-21 | Outpatient (CLI) | payer MEDICARE ==
[~2021-01-21] MED LIST changes: +BACTRIM DS 8001 TAB PO; +FLOMAX 0.40.4 MG/CAP PO; +ROXICODONE 55 MG/TAB PO; +T SLIM X MC
[2021-01-21 12:29] LABS: BASO % 0.7 % (0.0-2.0); EOS # 0.2 K/mm3 (0.0-0.7); EOS % 2.8 % (0-4.0); GRAN # 3.2 K/mm3 (1.4-6.5); GRAN % 59.2 % (42.2-75.2); HEMATOCRIT 47.7 % (42.0-52.0); HEMOGLOBIN 16.5 g/dl (13.5-18.0); LYMPH # 1.5 K/mm3 (1.2-3.4); LYMPH % 27.3 % (20.0-51.0); MEAN CELL VOLUME 92 fl (80.0-100.0); MEAN CORPUSCULAR HEMOGLOBIN 32 pg (27.0-31.0); MEAN CORPUSCULAR HGB CONC 35 g/dl (33.0-37.0); MEAN PLATELET VOLUME 10.2 fl (7.4-10.4); MONO # 0.5 K/mm3 (0.1-0.6); MONO % 9.8 % (1.7-9.3); PLATELET COUNT 157 K/mm3 (130-400); RED BLOOD COUNT 5.16 M/mm3 (4.20-5.60)
[2021-01-21 12:42] LABS: PROTHROMBIN TIME 11.3 SECONDS (9.7-12.8)
[2021-01-21 12:49] LABS: ALBUMIN 3.7 gm/dL (3.4-4.8); BILIRUBIN,TOTAL 0.8 mg/dL (0.2-1.2); CALCIUM 9.6 mg/dL (8.4-10.2); CREATININE, serum 1.05 mg/dL (0.72-1.25); POTASSIUM 4.7 mmol/L (3.5-4.5); TOTAL PROTEIN 7.8 gm/dL (6.2-8.1)
== END ==
LOC: COL.RAD 01-20 07:30
PROVIDERS: Internal Medicine Gastroenterology
DX: K75.81 Nonalcoholic steatohepatitis (NASH) (principal); K74.60 Unspecified cirrhosis of liver

== ENCOUNTER → 2021-01-27 | Outpatient (CLI) | payer MEDICARE ==
[2021-01-27 08:32] LABS: CALCIUM 9.3 mg/dL (8.4-10.2); CREATININE, serum 1.11 mg/dL (0.72-1.25)
== END ==
LOC: COL.CARD 07:24 → COL.LAB 07:24 → COL.CARD 07:40
PROVIDERS: Internal Medicine Interventional Cardiology
DX: Z79.899 Other long term (current) drug therapy (principal)

== ENCOUNTER → 2021-02-28 | Outpatient (CLI) | payer MEDICARE | LOC: COL.LAB 09:00 | DX: U07.1 COVID-19 (principal) ==

== ENCOUNTER → 2021-03-21 | Outpatient (CLI) | payer MEDICARE ==
[2021-03-21 12:32] LABS: ALBUMIN 3.7 gm/dL (3.4-4.8); BILIRUBIN,TOTAL 1.1 mg/dL (0.2-1.2); CALCIUM 9.2 mg/dL (8.4-10.2); POTASSIUM 4.3 mmol/L (3.5-4.5); TOTAL PROTEIN 7.2 gm/dL (6.2-8.1)
== END ==
LOC: COL.LAB 11:26
PROVIDERS: Nurse Practitioner Gerontology
DX: E10.65 Type 1 diabetes mellitus with hyperglycemia (principal)

== ENCOUNTER → 2021-03-21 | Outpatient (CLI) | payer MEDICARE ==
[2021-03-21 12:11] LABS: BASO % 0.7 % (0.0-2.0); EOS # 0.1 K/mm3 (0.0-0.7); EOS % 1.8 % (0.0-4.0); GRAN % 66.4 % (42.2-75.2); HEMATOCRIT 48.4 % (42.0-52.0); HEMOGLOBIN 16.3 g/dl (13.5-18.0); LYMPH # 1.3 K/mm3 (1.2-3.4); LYMPH % 21.9 % (20.0-51.0); MEAN CELL VOLUME 92 fl (80.0-100.0); MEAN CORPUSCULAR HEMOGLOBIN 31 pg (27-31); MEAN CORPUSCULAR HGB CONC 34 g/dl (33.0-37.0); MEAN PLATELET VOLUME 10.5 fl (7.4-10.4); MONO # 0.5 K/mm3 (0.1-0.6); PLATELET COUNT 163 K/mm3 (130-400); RED BLOOD COUNT 5.24 M/mm3 (4.20-5.60)
[2021-03-25 05:12] LABS: ALTERNARIA TEN ALLERGN IGE CNT <0.10 kU/L (()); ASPERGILLUS FUM ALLR IGE COUNT <0.10 kU/L (()); BERMUDA GRASS ALLERGEN IGE CNT <0.10 kU/L (()); BOX ELDER/MAPL ALLERGN IGE CNT <0.10 kU/L (()); CAT DANDER ALLERGEN IGE COUNT <0.10 kU/L (()); CLADOSPORIUM ALLERGN IGE COUNT <0.10 kU/L (()); COCKROACH ALLERGEN CLASS <0.10 kU/L (()); COTTONWOOD ALLERGEN IGE COUNT <0.10 kU/L (()); DOG DANDER ALLERGEN IGE COUNT <0.10 kU/L (()); DUST MITES IGE (D.F.) COUNT <0.10 kU/L (()); DUST MT D.P. ALLERGN IGE COUNT <0.10 kU/L (()); ELM ALLERGEN IGE COUNT <0.10 kU/L (()); FIREBUSH ALLERGEN IGE COUNT <0.10 kU/L (()); OAK ALLERGEN IGE COUNT <0.10 kU/L (()); ROUGH MRSH ELDR ALRG IGE COUNT <0.10 kU/L (()); RUSSIAN THIS ALLERGN IGE COUNT <0.10 kU/L (()); SHORT RAGWED ALLERGN IGE COUNT <0.10 kU/L (())
== END ==
LOC: COL.LAB 11:22
PROVIDERS: Internal Medicine Pulmonary Disease
DX: J32.9 Chronic sinusitis, unspecified (principal)

== ENCOUNTER 2021-04-12 14:01 | Emergency (ER) | payer MEDICARE ==
[~2021-04-12] VITALS: Ht 188 cm; Wt 111.4 kg
[2021-04-12 14:18] VITALS: TEMP 98
[2021-04-12] MEDS ORDERED: NORCO 325 MG-51 TAB PO (15:27)
[2021-04-12] MEDS ORDERED: ZOFRAN ODT4 MG PO (15:27)
[2021-04-12 15:43] VITALS: BP 126/76; PULSE 65
== END 2021-04-12 15:44 | disposition home or self-care (01) ==
LOC: COL.ER 14:01
DX: S06.0X9A Concussion with loss of consciousness of unspecified duration, initial encounter (principal); F03.90 Unspecified dementia, unspecified severity, without behavioral disturbance, psychotic disturbance, mood disturbance, and anxiety; E11.42 Type 2 diabetes mellitus with diabetic polyneuropathy; G47.00 Insomnia, unspecified; F41.9 Anxiety disorder, unspecified; J44.9 Chronic obstructive pulmonary disease, unspecified; I10 Essential (primary) hypertension; I48.91 Unspecified atrial fibrillation; Z87.891 Personal history of nicotine dependence; Z79.82 Long term (current) use of aspirin; Z79.4 Long term (current) use of insulin; Z79.899 Other long term (current) drug therapy; W01.198A Fall on same level from slipping, tripping and stumbling with subsequent striking against other object, initial encounter; Y99.0 Civilian activity done for income or pay

== ENCOUNTER → 2021-04-15 | Outpatient (CLI) | payer MEDICARE ==
[~2021-04-15] MED LIST changes: +NORCO 325 MG-51 TAB PO; +ZOFRAN ODT4 MG PO
== END ==
LOC: COL.RAD 14:35
DX: S06.0X0A Concussion without loss of consciousness, initial encounter (principal); X58.XXXA Exposure to other specified factors, initial encounter

== ENCOUNTER → 2021-07-20 | Outpatient (CLI) | payer MEDICARE ==
[2021-07-20 12:48] LABS: HEMATOCRIT 43.3 % (42.0-52.0); HEMOGLOBIN 14.5 g/dl (13.5-18.0); MEAN CELL VOLUME 95 fl (80.0-100.0); MEAN CORPUSCULAR HEMOGLOBIN 32 pg (27-31); MEAN CORPUSCULAR HGB CONC 34 g/dl (33.0-37.0); MEAN PLATELET VOLUME 10.4 fl (7.4-10.4); PLATELET COUNT 151 K/mm3 (130-400); RED BLOOD COUNT 4.54 M/mm3 (4.20-5.60); REDCELL DISTRIBUTION WIDTH-CV 13.2 % (11.5-14.5)
[2021-07-20 12:57] LABS: INR 1.1 (0.8-3.0); PROTHROMBIN TIME 12.1 SECONDS (9.7-12.8)
[2021-07-20 13:03] LABS: ALBUMIN 3.5 gm/dL (3.4-4.8); BILIRUBIN,TOTAL 0.8 mg/dL (0.2-1.2); CALCIUM 8.4 mg/dL (8.4-10.2); CREATININE, serum 0.93 mg/dL (0.72-1.25); POTASSIUM 4.4 mmol/L (3.5-4.5); TOTAL PROTEIN 6.8 gm/dL (6.2-8.1)
[2021-07-20 13:12] LABS: EOSINOPHIL 1 % (0-4); LYMPHOCYTE 26 % (20.0-51.0); NEUTROPHILS 65 % (42.0-75.2); PLATELET ESTIMATE NORMAL (NORMAL)
[2021-07-20 13:13] LABS: ANISOCYTOSIS 1+
== END ==
LOC: COL.RAD 11:29
PROVIDERS: Internal Medicine Gastroenterology
DX: K75.81 Nonalcoholic steatohepatitis (NASH) (principal); K74.60 Unspecified cirrhosis of liver

== ENCOUNTER 2021-10-07 14:15 | Outpatient (RCR) | payer MEDICARE | END 2021-10-09 | disposition home or self-care (01) | LOC: MKS.ESL.PT | DX: G47.61 Periodic limb movement disorder (principal) ==

== ENCOUNTER → 2021-10-13 | Outpatient (CLI) | payer MEDICARE | LOC: COL.CARD 12:00 | DX: Z79.899 Other long term (current) drug therapy (principal) ==

== ENCOUNTER 2021-10-17 10:00 | Emergency (ER) | payer MEDICARE ==
[~2021-10-17] VITALS: Ht 188 cm; Wt 112.7 kg
[2021-10-17 10:11] VITALS: TEMP 97.8
[2021-10-17] MEDS ORDERED: AMOXICILLIN 8751 TAB PO (11:40)
[2021-10-17 12:19] VITALS: BP 122/70; PULSE 74
== END 2021-10-17 12:19 | disposition home or self-care (01) ==
LOC: COL.ER 10:00
DX: S00.83XA Contusion of other part of head, initial encounter (principal); J32.9 Chronic sinusitis, unspecified; Z87.891 Personal history of nicotine dependence; W18.30XA Fall on same level, unspecified, initial encounter; Y92.094 Garage of other non-institutional residence as the place of occurrence of the external cause

== ENCOUNTER 2021-10-19 15:15 | Outpatient (RCR) | payer MEDICARE | END 2021-11-09 | disposition home or self-care (01) | LOC: MKS.ESL.PT | DX: G47.61 Periodic limb movement disorder (principal) ==

== ENCOUNTER → 2021-11-09 | Outpatient (RCR) | payer MEDICARE | END | disposition home or self-care (01) | LOC: MKS.ESL.OT | DX: Z86.73 Personal history of transient ischemic attack (TIA), and cerebral infarction without residual deficits (principal) ==

== ENCOUNTER → 2021-11-22 | Outpatient (CLI) | payer MEDICARE ==
[2021-11-22 12:05] LABS: BASO # 0.1 K/mm3 (0.0-0.2); BASO % 0.9 % (0.0-2.0); EOS # 0.2 K/mm3 (0.0-0.7); EOS % 3.9 % (0.0-4.0); GRAN # 3.8 K/mm3 (1.4-6.5); GRAN % 64.1 % (42.2-75.2); HEMATOCRIT 46.2 % (42.0-52.0); LYMPH # 1.2 K/mm3 (1.2-3.4); LYMPH % 20.2 % (20.0-51.0); MEAN CELL VOLUME 93 fl (80.0-100.0); MEAN CORPUSCULAR HEMOGLOBIN 32 pg (27-31); MEAN CORPUSCULAR HGB CONC 35 g/dl (33.0-37.0); MEAN PLATELET VOLUME 10.5 fl (7.4-10.4); MONO # 0.6 K/mm3 (0.1-0.6); MONO % 10.6 % (1.7-9.3); PLATELET COUNT 155 K/mm3 (130-400); RED BLOOD COUNT 4.99 M/mm3 (4.20-5.60); REDCELL DISTRIBUTION WIDTH-CV 13.1 % (11.5-14.5)
[2021-11-22 12:11] LABS: PROTHROMBIN TIME 11.2 SECONDS (9.7-12.8)
[2021-11-22 12:25] LABS: ALBUMIN 3.7 gm/dL (3.4-4.8); BILIRUBIN,TOTAL 0.8 mg/dL (0.2-1.2); CALCIUM 9.6 mg/dL (8.4-10.2); CREATININE, serum 0.87 mg/dL (0.72-1.25); POTASSIUM 4.2 mmol/L (3.5-4.5); TOTAL PROTEIN 7.2 gm/dL (6.2-8.1)
== END ==
LOC: COL.LAB 08:00
PROVIDERS: Internal Medicine Gastroenterology
DX: K75.81 Nonalcoholic steatohepatitis (NASH) (principal); K74.60 Unspecified cirrhosis of liver

== ENCOUNTER → 2023-01-02 | Outpatient (CLI) | payer MEDICARE ==
[2023-01-02 12:03] LABS: BASO % 0.8 % (0.0-2.0); EOS # 0.1 K/mm3 (0.0-0.7); EOS % 1.5 % (0.0-4.0); GRAN # 3.7 K/mm3 (1.4-6.5); GRAN % 69.3 % (42.2-75.2); HEMATOCRIT 43.6 % (42.0-52.0); HEMOGLOBIN 15.2 g/dl (13.5-18.0); LYMPH % 19.1 % (20.0-51.0); MEAN CELL VOLUME 93 fl (80.0-100.0); MEAN CORPUSCULAR HEMOGLOBIN 32 pg (27-31); MEAN CORPUSCULAR HGB CONC 35 g/dl (33.0-37.0); MEAN PLATELET VOLUME 10.6 fl (7.4-10.4); MONO # 0.5 K/mm3 (0.1-0.6); MONO % 9.1 % (1.7-9.3); PLATELET COUNT 156 K/mm3 (130-400); REDCELL DISTRIBUTION WIDTH-CV 12.7 % (11.5-14.5)
[2023-01-02 12:05] LABS: INR 1.2 (0.8-3.0); PROTHROMBIN TIME 12.6 SECONDS (9.7-12.8)
[2023-01-02 12:28] LABS: ALBUMIN 3.7 gm/dL (3.4-4.8); BILIRUBIN,TOTAL 1.2 mg/dL (0.2-1.2); CALCIUM 9.5 mg/dL (8.4-10.2); CREATININE, serum 1.08 mg/dL (0.72-1.25); POTASSIUM 4.9 mmol/L (3.5-4.5); TOTAL PROTEIN 7.4 gm/dL (6.2-8.1)
== END ==
LOC: COL.LAB 11:24
PROVIDERS: Internal Medicine Gastroenterology
DX: K75.81 Nonalcoholic steatohepatitis (NASH) (principal); K74.60 Unspecified cirrhosis of liver

== ENCOUNTER → 2023-01-02 | Outpatient (CLI) | payer MEDICARE ==
[2023-01-02 12:19] LABS: ALBUMIN 3.7 gm/dL (3.4-4.8); BILIRUBIN,TOTAL 1.2 mg/dL (0.2-1.2); CALCIUM 9.5 mg/dL (8.4-10.2); CHOLESTEROL RISK RATIO 2.1; CREATININE, serum 1.08 mg/dL (0.72-1.25); POTASSIUM 4.9 mmol/L (3.5-4.5); TOTAL PROTEIN 7.4 gm/dL (6.2-8.1)
== END ==
LOC: COL.LAB 11:22
PROVIDERS: Nurse Practitioner Gerontology
DX: E10.65 Type 1 diabetes mellitus with hyperglycemia (principal); K75.81 Nonalcoholic steatohepatitis (NASH); K74.60 Unspecified cirrhosis of liver

== ENCOUNTER → 2023-04-10 | Outpatient (CLI) | payer MEDICARE ==
[2023-04-10 10:15] LABS: ALBUMIN 3.5 gm/dL (3.4-4.8); CALCIUM 9.4 mg/dL (8.4-10.2); CREATININE, serum 0.9 mg/dL (0.72-1.25); PHOSPHOROUS 3.4 mg/dL (2.3-4.7); POTASSIUM 4.6 mmol/L (3.5-4.5)
== END ==
LOC: COL.LAB 09:16
PROVIDERS: Nurse Practitioner Gerontology
DX: E10.65 Type 1 diabetes mellitus with hyperglycemia (principal)

== ENCOUNTER → 2023-06-07 | Outpatient (CLI) | payer MEDICARE ==
[~2023-06-07] MED LIST changes: +Iohexol 300 - 100 ML VIAL IV ONE; +NS 100 ML IV SCH
== END ==
LOC: COL.RAD 08:40
DX: J01.00 Acute maxillary sinusitis, unspecified (principal)
CPT/HCPCS: Q9967

== ENCOUNTER → 2023-07-16 | Outpatient (CLI) | payer MEDICARE ==
[~2023-07-16] MED LIST changes: -Iohexol 300 - 100 ML VIAL IV ONE; -NS 100 ML IV SCH
[2023-07-16 12:06] LABS: ALBUMIN 3.7 g/dL (3.4-4.8); BILIRUBIN,TOTAL 0.9 mg/dL (0.2-1.2); CREATININE, serum 1.03 mg/dL (0.72-1.25); POTASSIUM 4.8 mEq/L (3.5-4.5); TOTAL PROTEIN 7.7 g/dl (6.2-8.1)
== END ==
LOC: COL.LAB 10:57
PROVIDERS: Nurse Practitioner Gerontology
DX: E10.65 Type 1 diabetes mellitus with hyperglycemia (principal)

== ENCOUNTER 2023-08-27 16:58 | Emergency (ER) | payer MEDICARE ==
[~2023-08-27] VITALS: Ht 188 cm; Wt 104.5 kg
[2023-08-27 17:16] VITALS: TEMP 97.4
[2023-08-27] MEDS ORDERED: Ibuprofen 600 MG TAB PO ONE (20:15)
[2023-08-27 20:51] VITALS: BP 151/88; PULSE 67
== END 2023-08-27 20:51 | disposition home or self-care (01) ==
LOC: COL.ER 16:58
DX: S00.03XA Contusion of scalp, initial encounter (principal); S70.02XA Contusion of left hip, initial encounter; S50.02XA Contusion of left elbow, initial encounter; Z87.891 Personal history of nicotine dependence; W01.198A Fall on same level from slipping, tripping and stumbling with subsequent striking against other object, initial encounter